=== PATIENT | female | born 1990 | race Caucasian/White ===

== ENCOUNTER 2023-06-12 18:06 | Emergency (ER) | payer BC, SELFPAY ==
[2023-06-12 18:16] VITALS: BP 125/73; PULSE 85; RESP 20; TEMP 36.9; O2SAT 98
--- NOTE | 2023-06-12 18:21 | ED.SKABFB ---
HPI - Skin/Abscess/Foreign Bdy General Chief complaint: Skin/Abscess/Foreign Body Stated complaint: rash/dizziness Time Seen by Provider: 06/12/23 18:25 Source: patient, RN notes reviewed and old records reviewed Mode of arrival: ambulatory Limitations: no limitations History of Present Illness HPI narrative: Sandra Dean presents to [facility] care with complaints of rash all over her body which started on Friday evening initially to chest which is not itchy. Patient denies any new medication, new laundry products, new soaps, lotions, or any known contact with poison plants. Patient states that she was at her grandparents on Friday and they were cleaning out a shed that had some old dry wall and some containers of stuff used on wall but nothing was leaking. Patient reports that she also has had some dizziness and associated nausea with no emesis.Patient denies any sinus congestion drainage or sore throat ,denies any fevers, no difficulty with her breathing or any difficulty swallowing. No known exposure to any ill contacts. MD complaint: rash and other (dizziness) Onset (ago): day(s) (3) Location: generalized Treatments prior to arrival: other (Benadryl) Related Data Home Medications Medication Instructions Recorded Confirmed levothyroxine 100 mcg tablet 100 mcg PO DAILY 06/12/23 06/12/23 sertraline 100 mg tablet 100 mg PO QPM 06/12/23 06/12/23 Allergies Allergy/AdvReac Type Severity Reaction Status Date / Time Nut Tree Allergy Unknown Unknown Uncoded 06/12/23 18:22 Review of Systems Review of Systems: CONSTITUTIONAL: Denies fever, chills, or sweats. CARDIOVASCULAR: Denies chest pain, palpitations, or edema. RESPIRATORY: Denies cough or dyspnea. denies any sore throat SKIN: Reports generalized rash to body since Friday evening, reports that she doesn't itch MUSCULOSKELETAL: Denies joint pain or myalgia. NEUROLOGIC: Denies headache, numbness, or weakness. All systems reviewed & are unremarkable except as noted in HPI and below PMFSH Past Medical History Medical History (Updated 06/13/23 @ 12:36 by Doretha Acosta NP) Anxiety and depression Hypothyroidism Kidney stone OCD (obsessive compulsive disorder) Surgical History Surgical History (Updated 06/13/23 @ 12:24 by Doretha L. Karla, DRAW OPERATOR) Hx of tonsillectomy Social History Social History (Updated 06/13/23 @ 12:22 by Doretha Acosta NP) Smoking status: Never smoker Alcohol intake: current Alcohol use details: rare Substance use type: does not use Gender identity (if verbalized by the patient): Female Comments At time of signature, agree with nursing past medical, surgical, social and family history. There is no relevant family history pertinent to the presenting complaint Exam Narrative: GENERAL: Well-appearing, well-nourished, and in no acute distress. HEAD: Normocephalic, atraumatic. EYES: PERRLA, conjunctivae clear, and EOMI. ENT: Mucous membranes moist. Oropharynx without edema, erythema or lesions. NECK: Supple. No lymphadenopathy CHEST: Clear to auscultation. No respiratory distress.SAO2 99% on room air HEART: Regular rate and rhythm. SKIN: Warm, dry.? Patches of red raised circular lesions generalized over body, no itching,no vesicles or any drainage. NEURO:? Alert and oriented x3. some dizziness with nausea PSYCH: Normal mood and affect anxious Course Course Emergency Course: Patient is aware of diagnosis, understands and agrees to treatment plan.? Anticipatory guidance given.? Patient agrees to follow-up as directed and is aware of reasons to seek care at the emergency department. Portions of this record may have been created with voice recognition software Level of Care: Express Care Visit Vital Signs Vital signs: Vital Signs Temperature 36.9 C 06/12/23 18:16 Pulse Rate 85 06/12/23 18:16 Respiratory Rate 20 06/12/23 18:16 Blood Pressure 125/73 06/12/23 18:16 Pulse Oximetry 98
== END 2023-06-12 19:03 | disposition home or self-care (01) ==
PROVIDERS: Emergency Provider Registered Nurse; PCP Physician Assistant
DX: L25.9 Unspecified contact dermatitis, unspecified cause (principal); R42 Dizziness and giddiness; E03.9 Hypothyroidism, unspecified; F41.9 Anxiety disorder, unspecified; F32.A Depression, unspecified; Z79.899 Other long term (current) drug therapy; Z20.822 Contact with and (suspected) exposure to COVID-19
CPT/HCPCS: 81025; 87426; 99203; C9803; G0463